=== PATIENT | female | born 1970 | race Caucasian/White ===

== ENCOUNTER → 2018-04-06 | Outpatient (CLI) | payer OTHER ==
[2018-04-06] MEDS: IOHEXOL 240 MG/ML 50ML VIAL. PO (15:11)
[2018-04-06] MEDS: IOHEXOL 300 MG/ML 100ML VIAL. IV (15:11)
== END | disposition home or self-care (01) ==
LOC: KCIC CT 13:57
DX: R10.84 Generalized abdominal pain (principal)
CPT/HCPCS: 74177; Q9966; Q9967

== ENCOUNTER → 2018-07-11 | Outpatient (CLI) | payer OTHER ==
[~2018-07-11] MED LIST: ESCITALOPRAM OXA5 MG PO
--- NOTE | 2018-07-11 15:16 | KCIC ---
Pelvic ultrasound dated 07/11/2018. No comparison available. Clinical data indication: Left ovarian cyst. FINDINGS: Transabdominal and transvaginal imaging was performed. Uterus measures 8.0 x 3.7 x 4.5 cm. No focal uterine mass. The medial complex normal in thickness for age measuring 3 mm. Right ovary measures 2.0 x 1.7 x 1.9 cm. Left ovary measures 2.5 x 1.8 x 2.1 cm. Normal-appearing ovarian follicles. No discrete cyst or mass. No free fluid. IMPRESSION: Negative pelvic ultrasound. Electronically signed by: Louie Hinton MD (07/11/2018 3:12 PM) [id number]
== END | disposition home or self-care (01) ==
LOC: KCIC US 14:13
PROVIDERS: ATTEND Nurse Practitioner Family
DX: N83.202 Unspecified ovarian cyst, left side (principal)
CPT/HCPCS: 76830; 76856